=== PATIENT | female | born 1955 | race African-American/Black ===

== ENCOUNTER → 2017-05-07 | Day surgery (SDC) | payer MEDICARE ==
[~2017-05-07] MED LIST: *RESP: ALBUTEROL 2.5 MG/3 ML NEB (PRN) PERIprocedural Use ONLY NEB ONE; ACETAMINOPHEN/HYDROcodone 325 MG/5 MG TAB PO PRN; AMLO5TAB2 PO; BUPIVACAINE HCL PF 0.5% 30 ML VIAL ONE; CANA1TAB4 PO; CEPH-460 PO; CHLORHEXIDINE GLUCONATE 2 % 1 PACK (2 CLOTHS) TOPICAL PRN; INSU1INJ14 SQ; INSULIN HUMAN REGULAR 1,000 UNITS/10 ML VIAL SQ PRN; LACTATED RINGER'S 1000 ML IV PRN; LIDOCAINE HCL 1% PF 5 ML AMPULE OTHER ONE; LIDOCAINE HCL 2% 50 ML VIAL ONE; LISI-515 PO; MEPERIDINE HCL 50 MG/ML VIAL IM PRN; METOPROLOL TARTRATE 25 MG TAB PO PRN; MIDAZOLAM HCL 2 MG/2 ML VIAL IV ONE; NEOMYCIN/POLYMYXIN 1 ML G.U. IRRIGANT IRRIGATION ONE; NORC5TAB PO; PHENYLEPH/NS 1000 MCG/10 ML SYR IV ONE; POVIDONE IODINE 5% (ANTISEPSIS KIT) 4 APPLICATIONS EACH NARE PRN; PROPOFOL 200 MG/20 ML AMP IV ONE; RESP: ALBUTEROL 2.5 MG/3 ML NEB (PRN) ONE; ROCURONIUM INJ 50 MG/5 ML SYRINGE IV PUSH ONE; SODIUM CHLORID 0.9% 500 ML IV PRN; VICT18IN SQ; ePHEDrine/NS 25 MG/5 ML SYR IV ONE
[2017-05-07 07:23] LABS: AUTOMATED NEUTROPHIL # 6.5 TH/MM3 (1.8-7.7); BASOPHIL # 0.1 TH/MM3 (0-0.2); BASOPHIL % 0.8 % (0.0-2.0); EOSINOPHIL # 0.8 TH/MM3 (0-0.4); EOSINOPHIL % 5.6 % (0.0-4.0); HEMATOCRIT 43.8 % (35.0-46.0); LYMPH % 40.4 % (9.0-44.0); LYMPHOCYTE # 5.6 TH/MM3 (1.0-4.8); MEAN CELL VOLUME 69.1 FL (80.0-100.0); MEAN CORPUSCULAR HEMOGLOBIN 22.6 PG (27.0-34.0); MEAN CORPUSCULAR HGB CONC 32.7 % (32.0-36.0); MONO % 5.7 % (0.0-8.0); NEUT % 47.5 % (16.0-70.0); PLATELET COUNT 312 TH/MM3 (150-450); RED BLOOD COUNT 6.35 MIL/MM3 (4.00-5.30); RED CELL DISTRIBUTION WIDTH 15.5 % (11.6-17.2); WHITE BLOOD COUNT 13.8 TH/MM3 (4.0-11.0)
[2017-05-07 07:35] LABS: HEMO FLAGS AUTO DIFF
[2017-05-07] MEDS: ceFAZolin 1,000 MG/NS 100 ML IV SCH ×4 (08:21→08:27)
[2017-05-07 08:28] LABS: ATYPICAL LYMPHOCYTES 10 % (0-0); BASOPHILS 1 % (0-2); EOSINOPHILS 7 % (0-4); NEUTROPHIL # MANUAL DIFF 6.1 TH/MM3 (1.8-7.7); POLYS (SEG NEUTROPHILS) 44 % (16-70); WBC DIFF SAMPLE 100
[2017-05-07 08:29] LABS: PLATELET ESTIMATE SMEAR NORMAL (NORMAL); PLATELET MORPHOLOGY NORMAL (NORMAL); TARGET CELLS 1+ (NORMAL)
[2017-05-07 08:30] LABS: SCAN/DIFF FINAL DIFF MANUAL
[2017-05-07 11:45] VITALS: BP 144/84; PULSE 93; RESP 16; TEMP 97.9; O2SAT 97
--- NOTE | 2017-05-07 12:39 | MP ---
cc: RAMÓN KAY III, M.D. DATE OF SURGERY 05/07/2017 PREOPERATIVE DIAGNOSIS 1. Left carpal tunnel syndrome 2. Left index finger trigger finger. 3. Left middle finger trigger finger. 4. Left ring finger trigger finger. POSTOPERATIVE DIAGNOSIS 1. Left carpal tunnel syndrome 2. Left index finger trigger finger. 3. Left middle finger trigger finger. 4. Left ring finger trigger finger. PROCEDURE 1. Left open carpal tunnel release. 2. Left index finger A1 kristyn release. 3. Left middle finger in all A1 kristyn release. 4. Left ring finger to close the kristyn release. SURGEON Ramón Kay III, MD TOURNIQUET TIME 28 minutes at 200 mmHg. PROCEDURE The patient brought to the operating room, placed on the operating table. After the correct site and side of surgery were verified by members of each team in the room multiple times including the patient and myself and after adequate preoperative markings and preoperative written consent were verified by everyone and after adequate preop time-out was performed to everyone's satisfaction and after adequate IV sedation had been achieved, the left upper extremity was prepped and draped in the traditional sterile surgical fashion. A 50/50 mixture of 2% plain lidocaine 0.5% plain Marcaine was infiltrated in the skin and subcutaneous tissue in the area of the carpal tunnel, as well as overlying the A1 kristyn to the index, middle and ring fingers. The limb was exsanguinated with a gentle Socrates wrap and a highly placed well-padded axillary tourniquet was inflated to 200 mmHg for total of 28minutes. A longitudinally oriented incision at the base of the palm was made and carried down through skin and subcutaneous tissue. Blunt dissection was performed. Bipolar electrocautery was used as needed. The palmar fascia was retracted in opposite directions. The transverse carpal ligament was identified and divided in its midline in its entirety from its proximal most to its distal-most extents completely freeing the carpal tunnel contents and all its contents. The nerve was examined and found to be slightly hypovascular, but otherwise intact with moderately hypertrophic tenosynovium. There were no other anatomic abnormalities identified. No mass effects. Thorough irrigation with saline was performed. The skin edges were then reapproximated using running 4-0 nylon suture. A new incision was then made overlying the index finger A1 kristyn in the flexion crease. Blunt dissection was performed. The A1 kristyn was identified and divided in its entirety from its proximal most to its distal most extent. Exploration proximally did not reveal any other crossing bands of tissue and the flexor tendons were intact and non-compromised. Thorough irrigation was performed with saline irrigation. The skin edges were approximated using interrupted and running 4-0 nylon sutures. The identical procedure was then performed through a separate incision for the middle finger A1 kristyn. The identical procedure was then performed through a separate incision for the ring finger A1 kristyn. The hand and arm were thoroughly cleansed and dried. Betadine Adaptic dressings applied atop of the wounds followed by a bulky soft dressing. The axillary tourniquet was released and the hand and all fingers became immediately soft, pink, and warm and had brisk capillary refill of less than two seconds. A bulky dressing was applied. The patient was awakened from anesthesia, transported to the Post Anesthesia Care Unit in stable condition at the end of the case. The sponge, needle, and instrument counts were correct at the end of the case as reported by nurses in the room. MD KALEB Wilson III/CELINE /9:44 AM /12:23 PM
== END | disposition home or self-care (01) ==
LOC: HSDC 06:28
PROVIDERS: ATTEND Orthopaedic Surgery Hand Surgery
DX: G56.02 Carpal tunnel syndrome, left upper limb (principal); M65.322 Trigger finger, left index finger; M65.332 Trigger finger, left middle finger; M65.342 Trigger finger, left ring finger; D72.820 Lymphocytosis (symptomatic); I10 Essential (primary) hypertension; E11.9 Type 2 diabetes mellitus without complications; F17.210 Nicotine dependence, cigarettes, uncomplicated; Z79.4 Long term (current) use of insulin; Z79.899 Other long term (current) drug therapy
CPT/HCPCS: 82948; 85007; 85027; 94640; 94664; J0690; J2250; J2370; J3010; J7120; J7613

== ENCOUNTER 2017-05-15 13:24 | Emergency (ER) | payer MEDICARE, MEDICAID ==
[~2017-05-15] VITALS: Ht 157.5 cm; Wt 93.0 kg
[~2017-05-15 13:24] MED LIST changes: -*RESP: ALBUTEROL 2.5 MG/3 ML NEB (PRN) PERIprocedural Use ONLY NEB ONE; -ACETAMINOPHEN/HYDROcodone 325 MG/5 MG TAB PO PRN; -BUPIVACAINE HCL PF 0.5% 30 ML VIAL ONE; -CHLORHEXIDINE GLUCONATE 2 % 1 PACK (2 CLOTHS) TOPICAL PRN; -INSULIN HUMAN REGULAR 1,000 UNITS/10 ML VIAL SQ PRN; -LACTATED RINGER'S 1000 ML IV PRN; -LIDOCAINE HCL 1% PF 5 ML AMPULE OTHER ONE; -LIDOCAINE HCL 2% 50 ML VIAL ONE; -MEPERIDINE HCL 50 MG/ML VIAL IM PRN; -METOPROLOL TARTRATE 25 MG TAB PO PRN; -MIDAZOLAM HCL 2 MG/2 ML VIAL IV ONE; -NEOMYCIN/POLYMYXIN 1 ML G.U. IRRIGANT IRRIGATION ONE; -PHENYLEPH/NS 1000 MCG/10 ML SYR IV ONE; -POVIDONE IODINE 5% (ANTISEPSIS KIT) 4 APPLICATIONS EACH NARE PRN; -PROPOFOL 200 MG/20 ML AMP IV ONE; -RESP: ALBUTEROL 2.5 MG/3 ML NEB (PRN) ONE; -ROCURONIUM INJ 50 MG/5 ML SYRINGE IV PUSH ONE; -SODIUM CHLORID 0.9% 500 ML IV PRN; -ePHEDrine/NS 25 MG/5 ML SYR IV ONE
[2017-05-15 13:41] VITALS: BP 145/78; PULSE 78; RESP 21; TEMP 99.6; O2SAT 100
[2017-05-15] MEDS ORDERED: SODIUM CHLORIDE 0.9% FLUSH 10 ML FLUSH IVF PRN (14:00)
[2017-05-15] MEDS ORDERED: SODIUM CHLORID 0.9% 500 ML INJ 500 ML IV ONE (14:00)
[2017-05-15 15:07] LABS: AUTOMATED NEUTROPHIL # 5.7 TH/MM3 (1.8-7.7); BASOPHIL # 0.1 TH/MM3 (0-0.2); BASOPHIL % 0.6 % (0.0-2.0); EOSINOPHIL # 0.8 TH/MM3 (0-0.4); EOSINOPHIL % 6.4 % (0.0-4.0); HEMATOCRIT 42.4 % (35.0-46.0); HEMO FLAGS DIFF FINAL; LYMPH % 39.1 % (9.0-44.0); LYMPHOCYTE # 4.7 TH/MM3 (1.0-4.8); MEAN CELL VOLUME 69.3 FL (80.0-100.0); MEAN CORPUSCULAR HEMOGLOBIN 22.5 PG (27.0-34.0); MEAN CORPUSCULAR HGB CONC 32.5 % (32.0-36.0); MONO % 6.2 % (0.0-8.0); NEUT % 47.7 % (16.0-70.0); PLATELET COUNT 293 TH/MM3 (150-450); RED BLOOD COUNT 6.11 MIL/MM3 (4.00-5.30); RED CELL DISTRIBUTION WIDTH 15.4 % (11.6-17.2)
--- NOTE | 2017-05-15 15:14 | RADRPT ---
EXAM DATE/TIME: 05/15/2017 14:22 [facility] COMPARISON: CHEST SINGLE AP, August 06, 2016, 11:17. INDICATIONS : Shortness of breath. MEDICAL HISTORY : Chronic obstructive pulmonary disease. SURGICAL HISTORY : None. ENCOUNTER: Initial ACUITY: 1 day PAIN SCORE: 0/10 LOCATION: Bilateral chest FINDINGS: A single view of the chest demonstrates the lungs to be symmetrically aerated without evidence of mas s, infiltrate or effusion. The cardiomediastinal contours are unremarkable. Osseous structures are intact. CONCLUSION: No acute disease. David Jean MD on May 15, 2017 at 15:12 Board Certified Radiologist. This report was verified electronically.
[2017-05-15 15:18] LABS: APTT (PATIENT) 23.8 SEC (24.3-30.1); PROTHROMBIN TIME - PATIENT 10.9 SEC (9.8-11.6)
[2017-05-15 15:29] LABS: ALT (GPT) 47 U/L (10-53); ANION GAP 10 MEQ/L (5-15); AST (GOT) 35 U/L (15-37); BICARBONATE 23.2 MEQ/L (21.0-32.0); BLOOD UREA NITROGEN 13 MG/DL (7-18); CHLORIDE 109 MEQ/L (98-107); GLOMERULAR FILTRATION RATE 86 ML/MIN (>89); SODIUM (NA) 142 MEQ/L (136-145)
[2017-05-15 15:32] LABS: ALKALINE PHOSPHATASE 77 U/L (45-117); TOTAL BILIRUBIN ADULT 0.7 MG/DL (0.2-1.0)
[2017-05-15 15:41] LABS: CREATINE KINASE 82 U/L (26-192)
[2017-05-15 16:24] VITALS: BP 160/79; PULSE 79; RESP 18; O2SAT 99
[2017-05-15 16:49] LABS: BLOOD, URINE NEG (NEG); COMMENT (UR) CULT NOT INDICATED; CULTURE IF INDICATED CULT NOT INDICATED; GLUCOSE,URINE 1000 mg/dL (NEG); KETONE, URINE NEG (NEG); NITRITE,URINE NEG (NEG); SQUAMOUS EPITHELIAL CELL URINE 2 /hpf (0-5); URINE COLOR YELLOW (YELLW/STRAW)
--- NOTE | 2017-05-15 17:07 | PD ---
HPI Chief Complaint: Dizziness Time Seen by Provider: 13:43 Travel History International Travel<30 days: No Contact w/Intl Traveler<30days: No Traveled to known affect area: No History of Present Illness HPI Patient is a 61-year-old female brought in by EMS after nausea and feeling ill while standing in the heat. She reports [place] when she started to feel sick to her stomach, she says she got very sweaty and dizzy. She denies ever having any chest pain or shortness of breath. She was given fluids and Zofran by EMS prior to arrival, and says she is starting to feel better. She does report drinking water today. She says this never happened to her before. She denies any headache at this time. PFSH Past Medical History Arthritis: Yes Blood Disorders: No Cancer: Yes (SKIN CA REMOVED FROM FOREHEAD) Cardiovascular Problems: No Diabetes: Yes Patient Takes Glucophage: No Diminished Hearing: No Endocrine: Yes GERD: Yes Glaucoma: No Genitourinary: No Hepatitis: No Hiatal Hernia: No Hypertension: Yes (CONTROLLED WITH DIET AND EXERCISE) Immune Disorder: No Implanted Vascular Access Dvce: Yes Musculoskeletal: Yes (OA) Neurologic: No Psychiatric: No Reproductive: No Respiratory: Yes (COPD) Immunizations Current: Yes Thyroid Disease: No Ulcer: Yes Influenza Vaccination: Yes ?: Not Menopausal: Yes Tubal Ligation: Yes Past Surgical History Abdominal Surgery: Yes (LAP BAND - REMOVED 08/26/09) AICD: No Body Medical Devices: LAP BAND Cardiac Surgery: No Ear Surgery: No Endocrine Surgery: No Eye Surgery: No Genitourinary Surgery: No Gynecologic Surgery: Yes (TUBAL LIGATION, HYSTERECTOMY) Hysterectomy: Yes Joint Replacement: No Neurologic Surgery: No Oral Surgery: No Pacemaker: No Thoracic Surgery: No Other Surgery: Yes (HEMORRHOIDECTOMY) Social History Alcohol Use: No Tobacco Use: Yes (1 PPD ) Substance Use: No Allergies-Medications (Allergen,Severity, Reaction): Coded Allergies: oxycodone (Verified Allergy, Severe, RASH, ITCHING, 05/15/17) Reported Meds & Prescriptions Reported Meds & Active Scripts Active Reported Invokamet (Canagliflozin-Metformin) 150-1,000 Mg Tab 1 Tab PO BID Take with meals. Avoid ethanol. Victoza Inj (Liraglutide Inj) 18 Mg/3 Ml Pen 12 Mg SQ DAILY Lisinopril 20 Mg Tab 20 Mg PO DAILY Amlodipine (Amlodipine Besylate) 5 Mg Tab 5 Mg PO DAILY Tresiba Flextouch Pen Inj (Insulin Degludec Inj) 300 unit/3 ML Pen 60 Units SQ DAILY Review of Systems Except as stated in HPI: all other systems reviewed are Neg General / Constitutional: No: Fever, Chills Eyes: No: Blurred Vision HENT: No: Headaches, Lightheadedness Cardiovascular: No: Chest Pain or Discomfort, Palpitations Respiratory: No: Shortness of Breath Gastrointestinal: Positive: Nausea, No: Vomiting, Abdominal Pain Genitourinary: No: Dysuria Musculoskeletal: No: Myalgias, Pain Skin: No Rash, No Change in Pigmentation Neurologic: No: Weakness, Dizziness Physical Exam Narrative GENERAL: Awake and alert, in no acute distress. SKIN: Focused skin assessment warm/dry. HEAD: Atraumatic. Normocephalic. EYES: Pupils equal and round. No scleral icterus. ENT: No nasal bleeding or discharge. Mucous membranes pink and moist. NECK: Trachea midline. No JVD. CARDIOVASCULAR: Regular rate and rhythm. No murmur appreciated. RESPIRATORY: No accessory muscle use. Clear to auscultation. Breath sounds equal bilaterally. GASTROINTESTINAL: Abdomen soft, non-tender, nondistended. MUSCULOSKELETAL: No obvious deformities. No clubbing. No cyanosis. No edema. NEUROLOGICAL: Awake and alert. No obvious cranial nerve deficits. Motor grossly within normal limits. Normal speech. PSYCHIATRIC: Appropriate mood and affect; insight and judgment normal. Data Data Last Documented VS Vital Signs Date Time Temp Pulse Resp B/P (MAP) Pulse Ox O2 Delivery O2 Flow Rate FiO2 05/15/17 16:24 79 18 160/79 (106) 99 05/15/17 13:47 Room Air 05/15/17 13:41 99.6 Orders Orders Electrocardiogram (05/15/17 13:47) Complete Blood Count With Diff (05/15/17 13:47) Comprehensive Metabolic Panel (05/15/17 13:47) Ckmb (Isoenzyme) Profile (05/15/17 13:47) Troponin I (05/15/17 13:47) Act Partial Throm Time (Ptt) (05/15/17 13:47) Prothrombin Time / Inr (Pt) (05/15/17 13:47) Urinalysis - C+S If Indicated (05/15/17 13:47) Chest, Single Ap (05/15/17 13:47) Ecg Monitoring (05/15/17 13:47) Iv Access Insert/Monitor (05/15/17 13:47) Oximetry (05/15/17 13:47) Sodium Chloride 0.9% Flush (Ns Flush) (05/15/17 14:00) Sodium Chlorid 0.9% 500 Ml Inj (Ns 500 M (05/15/17 14:00) Labs Laboratory Tests Test 05/15/17 14:45 05/15/17 16:05 White Blood Count 12.0 TH/MM3 Red Blood Count 6.11 MIL/MM3 Hemoglobin 13.7 GM/DL Hematocrit 42.4 % Mean Corpuscular Volume 69.3 FL Mean Corpuscular Hemoglobin 22.5 PG Mean Corpuscular Hemoglobin Concent 32.5 % Red Cell Distribution Width 15.4 % Platelet Count 293 TH/MM3 Mean Platelet Volume 7.2 FL Neutrophils (%) (Auto) 47.7 % Lymphocytes (%) (Auto) 39.1 % Monocytes (%) (Auto) 6.2 % Eosinophils (%) (Auto) 6.4 % Basophils (%) (Auto) 0.6 % Neutrophils # (Auto) 5.7 TH/MM3 Lymphocytes # (Auto) 4.7 TH/MM3 Monocytes # (Auto) 0.7 TH/MM3 Eosinophils # (Auto) 0.8 TH/MM3 Basophils # (Auto) 0.1 TH/MM3 CBC Comment DIFF FINAL Differential Comment Prothrombin Time 10.9 SEC Prothromb Time International Ratio 1.0 RATIO Activated Partial Thromboplast Time 23.8 SEC Blood Urea Nitrogen 13 MG/DL Creatinine 0.82 MG/DL Random Glucose 78 MG/DL Total Protein 7.4 GM/DL Albumin 3.7 GM/DL Calcium Level 9.0 MG/DL Alkaline Phosphatase 77 U/L Aspartate Amino Transf (AST/SGOT) 35 U/L Alanine Aminotransferase (ALT/SGPT) 47 U/L Total Bilirubin 0.7 MG/DL Sodium Level 142 MEQ/L Potassium Level 4.0 MEQ/L Chloride Level 109 MEQ/L Carbon Dioxide Level 23.2 MEQ/L Anion Gap 10 MEQ/L Estimat Glomerular Filtration Rate 86 ML/MIN Total Creatine Kinase 82 U/L Troponin I LESS THAN 0.02 NG/ML Urine Color YELLOW Urine Turbidity CLEAR Urine pH 5.0 Urine Specific Manson 1.021 Urine Protein NEG mg/dL Urine Glucose (UA) 1000 mg/dL Urine Ketones NEG mg/dL Urine Occult Blood NEG Urine Nitrite NEG Urine Bilirubin NEG Urine Urobilinogen LESS THAN 2.0 MG/DL Urine Leukocyte Esterase NEG Urine WBC LESS THAN 1 /hpf Urine Squamous Epithelial Cells 2 /hpf Microscopic Urinalysis Comment CULT NOT INDICATED MDM Medical Decision Making Medical Screen Exam Complete: Yes Emergency Medical Condition: Yes Medical Record Reviewed: Yes Interpretation(s) ECG shows NSR at 79, no ST elevation or depression, normal intervals Differential Diagnosis Dehydration versus heat exhaustion versus electrolyte abnormality Narrative Course Patient is a 61-year-old female who comes in after feeling nauseous and sick to her stomach while out in the sun. Exam shows no acute abnormalities, abdomen is soft and nontender. IV was established, labs sent. Labs show slight elevation in white blood cell count, no other acute abnormalities. Patient given IV fluids. She did receive Zofran by EMS. She reports feeling much better after resting here in the air conditioning. Patient advised to drink plenty of fluids. Advised follow-up with her doctor. Advised to return to the ED as needed for any worsening symptoms. Diagnosis Primary Impression: Heat exhaustion Qualified Codes: T67.5XXA - Heat exhaustion, unspecified, initial encounter Patient Instructions: General Instructions, Heat Exhaustion (ED) Additional Instructions: Drink plenty of fluids. Follow-up with your doctor. Return to the ED as needed for any worsening symptoms. Disposition: 01 DISCHARGE HOME Condition: Stable Geno Nagy MD May 15, 2017 17:07
[2017-05-15 17:21] VITALS: BP 162/85
--- NOTE | 2017-05-16 05:14 | EKG ---
Date Performed: 05/15/2017 Time Performed: 13:55:21 PTAGE: 61 years EKG: Sinus rhythm NONSPECIFIC T-WAVE ABNORMALITY BORDERLINE ECG PREVIOUS TRACING : 08/06/2016 11.33 DOCTOR: Rayshawn Mendes Interpretating Date/Time 05/16/2017 05:07:55
== END 2017-05-15 18:11 | disposition home or self-care (01) ==
LOC: NEPD 13:24
DX: T67.5XXA Heat exhaustion, unspecified, initial encounter (principal); R11.0 Nausea; R42 Dizziness and giddiness; E11.9 Type 2 diabetes mellitus without complications; I10 Essential (primary) hypertension; J44.9 Chronic obstructive pulmonary disease, unspecified; K21.9 Gastro-esophageal reflux disease without esophagitis; R94.31 Abnormal electrocardiogram [ECG] [EKG]; F17.210 Nicotine dependence, cigarettes, uncomplicated
CPT/HCPCS: 71010; 80053; 81001; 82550; 84484; 85025; 85610; 85730; 93005; 96360; 96361; 99285; J7040

== ENCOUNTER 2017-08-10 12:08 | Emergency (ER) | payer MEDICARE, MEDICAID ==
[~2017-08-10] VITALS: Ht 154.9 cm; Wt 95.0 kg
[~2017-08-10 12:08] MED LIST changes: -CEPH-460 PO; -NORC5TAB PO
[2017-08-10 12:10] VITALS: BP 161/77; PULSE 86; RESP 20; TEMP 98.9; O2SAT 98
[2017-08-10] MEDS ORDERED: VENTAER INH (12:31)
[2017-08-10 12:32] VITALS: BP 144/92; PULSE 77; RESP 21; O2SAT 99
[2017-08-10] MEDS ORDERED: SODIUM CHLOR 0.9% 1000 ML INJ 1,000 ML IV ONE (12:34)
--- NOTE | 2017-08-10 12:41 | PD ---
HPI Chief Complaint: Dizziness Time Seen by Provider: 12:26 Travel History International Travel<30 days: No Contact w/Intl Traveler<30days: No Traveled to known affect area: No History of Present Illness HPI 61-year-old female presents to emergency department complaining of frontal headache and sinus pain for approximately 1 week. Patient states that she has associated dizziness, nausea, and lightheadedness with these symptoms. States the dizziness increases with movement of the head and is positional, resolved in less than 1 minute. No vomiting. Also says she has some tendinitis left greater than right. States that she "cannot hear out of her left ear". Says that approximately one week ago she started having upper respiratory/cold like symptoms and took Mucinex and other [id number] medications to decrease his symptoms. Says she did have a mild cough but currently does not. Also says she previously had some clear rhinorrhea but is scant this point. Denies fevers or chills. Denies chest pain or shortness of breath. Denies trauma or recent head injury. States she is not had these symptoms before. Says she has a history of hypertension and diabetes and takes her medication as prescribed. She has an appointment with a primary care physician August 13 [facility] Past Medical History Arthritis: Yes Blood Disorders: No Cancer: Yes (SKIN CA REMOVED FROM FOREHEAD) Cardiovascular Problems: Yes (HTN) COPD: Yes Diabetes: Yes Patient Takes Glucophage: Yes Diminished Hearing: No Endocrine: Yes GERD: Yes Glaucoma: No Genitourinary: No Hepatitis: No Hiatal Hernia: No Hypertension: Yes (CONTROLLED WITH DIET AND EXERCISE) Immune Disorder: No Implanted Vascular Access Dvce: Yes Musculoskeletal: Yes (OA) Neurologic: No Psychiatric: No Reproductive: No Respiratory: Yes (COPD) Immunizations Current: Yes Thyroid Disease: No Ulcer: Yes Menopausal: Yes Tubal Ligation: Yes Past Surgical History Abdominal Surgery: Yes (LAP BAND - REMOVED 08/26/09) AICD: No Body Medical Devices: LAP BAND Cardiac Surgery: No Ear Surgery: No Endocrine Surgery: No Eye Surgery: No Genitourinary Surgery: No Gynecologic Surgery: Yes (TUBAL LIGATION, HYSTERECTOMY) Hysterectomy: Yes Joint Replacement: No Neurologic Surgery: No Oral Surgery: No Pacemaker: No Thoracic Surgery: No Other Surgery: Yes (HEMORRHOIDECTOMY) Social History Alcohol Use: No Tobacco Use: Yes (1 PPD ) Substance Use: No Allergies-Medications (Allergen,Severity, Reaction): Coded Allergies: oxycodone (Verified Allergy, Severe, RASH, ITCHING, 08/10/17) Reported Meds & Prescriptions Reported Meds & Active Scripts Active Augmentin (Amoxicillin-Clavulanate) 875-125 Mg Tab 1 Tab PO BID 10 Days Medrol Dosepak (Methylprednisolone) 4 Mg Dspk 4 Mg PO DIRECTED Per Pharmacist direction Reported Ventolin Hfa 18 GM Inh (Albuterol Sulfate) 90 Mcg/Act Aer 1 Puff INH Q4H PRN Invokamet (Canagliflozin-Metformin) 150-1,000 Mg Tab 1 Tab PO BID Take with meals. Avoid ethanol. Victoza Inj (Liraglutide Inj) 18 Mg/3 Ml Pen 12 Mg SQ DAILY Lisinopril 20 Mg Tab 20 Mg PO DAILY Amlodipine (Amlodipine Besylate) 5 Mg Tab 5 Mg PO DAILY Tresiba Flextouch Pen Inj (Insulin Degludec Inj) 300 unit/3 ML Pen 60 Units SQ DAILY Review of Systems Except as stated in HPI: all other systems reviewed are Neg Physical Exam Narrative GENERAL: Well-developed well-nourished in mild to moderate distress SKIN: Focused skin assessment warm/dry. HEAD: Atraumatic. Normocephalic. EYES: Pupils equal and round. No scleral icterus. No injection or drainage. ENT: No nasal bleeding or discharge. Mucous membranes pink and moist. Maxillary frontal sinuses- negative tenderness palpation. No edema or erythema NECK: Trachea midline. No JVD. No lymphadenopathy. No meningismus CARDIOVASCULAR: Regular rate and rhythm. No murmur appreciated. RESPIRATORY: No accessory muscle use. Clear to auscultation. Breath sounds equal bilaterally. MUSCULOSKELETAL: No obvious deformities. No clubbing. No cyanosis. No edema. NEUROLOGICAL: Awake and alert. No obvious cranial nerve deficits. Motor grossly within normal limits. Normal speech. PSYCHIATRIC: Appropriate mood and affect; insight and judgment normal. Data Data Last Documented VS Vital Signs Date Time Temp Pulse Resp B/P (MAP) Pulse Ox O2 Delivery O2 Flow Rate FiO2 08/10/17 15:52 08/10/17 15:21 81 17 99 Room Air 08/10/17 12:[address] Brain W/O Iv Contrast(Rout) (08/10/17 12:34) Ecg Monitoring (08/10/17 12:34) Iv Access Insert/Monitor (08/10/17 12:34) Oximetry (08/10/17 12:34) Meclizine (Antivert) (08/10/17 12:45) Ondansetron Inj (Zofran Inj) (08/10/17 12:45) Sodium Chloride 0.9% Flush (Ns Flush) (08/10/17 12:45) Sodium Chlor 0.9% 1000 Ml Inj (Ns 1000 M (08/10/17 12:34) Ct Sinuses W/O Iv Contrast (08/10/17 ) Electrocardiogram (08/10/17 ) Prednisone (Deltasone) (08/10/17 15:15) Ed Discharge Order (08/10/17 15:28) MDM Medical Decision Making Medical Screen Exam Complete: Yes Emergency Medical Condition: Yes Differential Diagnosis Acute sinusitis, SAH, labyrinthitis, BPPV, tinnitus Narrative Course 61-year-old female presents to emergency department complaining of frontal headache and sinus pain for approximately 1 week. Patient states that she has associated dizziness, nausea, and lightheadedness with these symptoms. States the dizziness increases with movement of the head and is positional, resolved in less than 1 minute. No vomiting. Also says she has some tendinitis left greater than right. States that she "cannot hear out of her left ear". Says that approximately one week ago she started having upper respiratory/cold like symptoms and took Mucinex and other [id number]-[id number] medications to decrease his symptoms. Says she did have a mild cough but currently does not. Also says she previously had some clear rhinorrhea but is scant this point. Denies fevers or chills. Denies chest pain or shortness of breath. Denies trauma or recent head injury. States she is not had these symptoms before. Says she has a history of hypertension and diabetes and takes her medication as prescribed. She has an appointment with a primary care physician August 13. Vital signs stable. Physical exam findings consistent with sinusitis, frontal and maxillary. Cranial nerves grossly intact. No obvious neuro deficits. Tympanic membranes nonbulging. Upon exam patient was brought to a reclined to a sitting position and this exacerbated her dizziness that resolved within seconds. There was a 2 hour delay in the emergency department secondary to awaiting CT results. Prednisone 50 mg administered in the emergency department. Last Impressions Head CT 08/10/17 1234 Signed Impressions: Service Date/Time: Thursday, August 10, 2017 14:39 - CONCLUSION: Significant sinusitis. Aby Patrick MD Sinuses CT 08/10/17 0000 Signed Impressions: Service Date/Time: Thursday, August 10, 2017 14:39 - CONCLUSION: Sinusitis worse within the left sphenoid sinus. Aby Patrick MD Medrol Dosepak and Augmentin for sinusitis. I suspect that her sinusitis is viral however, because of the extent of the sinusitis and history of diabetes, I prefer to cover for bacterial sinusitis. Patient should use nasal saline. Follow-up with her primary care as scheduled this week. Return to the ED for worsening or persistent symptoms. Diagnosis Primary Impression: Sinusitis Qualified Codes: J01.10 - Acute frontal sinusitis, unspecified Additional Impressions: BPPV (benign paroxysmal positional vertigo) Qualified Codes: H81.13 - Benign paroxysmal vertigo, bilateral Tinnitus Qualified Codes: H93.12 - Tinnitus, left ear Referrals: Primary Care Physician Additional Instructions: Follow up with your primary care physician as scheduled August 13. If your symptoms persist or worsen, return to the emergency department. Use nasal saline and [id number] antihistamines for your sinuses. OTC Meclizine for your dizziness. Prednisone may increase your blood sugars. Be extra cautious of your intake. Scripts Amoxicillin-Clavulanate (Augmentin) 875-125 Mg Tab 1 TAB PO BID for Infection for 10 Days, #20 TAB 0 Refills Prov: Shae Mcmillan 08/10/17 Methylprednisolone Dosepak (Medrol Dosepak) 4 Mg Dspk 4 MG PO DIRECTED, #1 DSPK 0 Refills Per Pharmacist direction Prov: Shae Mcmillan 08/10/17 Disposition: 01 DISCHARGE HOME Condition: Stable Shae Mcmillan Aug 10, 2017 12:41
[2017-08-10] MEDS ORDERED: SODIUM CHLORIDE 0.9% FLUSH 10 ML FLUSH IVF PRN (12:45)
[2017-08-10] MEDS ORDERED: ONDANSETRON HCL 4 MG/2 ML VIAL IVP ONE (12:45)
[2017-08-10] MEDS ORDERED: MECLIZINE HCL 25 MG TAB PO ONE (12:45)
[2017-08-10] MEDS ORDERED: MEDR4PAK PO (15:04)
[2017-08-10] MEDS ORDERED: AUGM875T3 PO (15:04)
[2017-08-10] MEDS ORDERED: predniSONE 50 MG TAB PO ONE (15:15)
--- NOTE | 2017-08-10 15:20 | RADRPT ---
EXAM DATE/TIME: 08/10/2017 14:39 [facility] COMPARISON: No previous studies available for comparison. INDICATIONS : Dizziness, frontal headache, sinus pressure and nausea. RADIATION DOSE: 44.17 CTDIvol (mGy) MEDICAL HISTORY : Cardiovascular disease. Hypertension. Diabetes mellitus type 2. SURGICAL HISTORY : None. ENCOUNTER: Initial ACUITY: 1 week PAIN SCALE: 3/10 LOCATION: Bilateral frontal TECHNIQUE: Multiple contiguous axial images were obtained of the head. Using automated exposure control and adj ustment of the mA and/or kV according to patient size, radiation dose was kept as low as reasonably a chievable to obtain optimal diagnostic quality images. DICOM format image data is available electro nically for review and comparison. FINDINGS: There is no evidence for intracranial hemorrhage, mass effect, mass lesions, edema, or extra-axial fl uid collections. The visualized bony structures appear intact. The ventricles are normal size for t he patient's age. There are no signs of acute infarction for technique. There is sinusitis within mu ltiple sinuses including the eithmoid air cells sphenoid sinuses bilateral maxillary sinuses worse in volving the left sphenoid sinus to a significant degree. CONCLUSION: Significant sinusitis. Aby Patrick MD on August 10, 2017 at 15:17 Board Certified Radiologist. This report was verified electronically.
[2017-08-10 15:21] VITALS: BP 145/70; PULSE 81; RESP 17; O2SAT 99
--- NOTE | 2017-08-10 15:22 | RADRPT ---
EXAM DATE/TIME: 08/10/2017 14:39 [facility] COMPARISON: No previous studies available for comparison. INDICATIONS : Frontal headache, sinus pressure, dizziness and nausea. RADIATION DOSE: 18.42 CTDIvol (mGy) MEDICAL HISTORY : Cardiovascular disease. Hypertension. Diabetes mellitus type 2. SURGICAL HISTORY : None. ENCOUNTER: Initial ACUITY: 1 day PAIN SCORE: 4/10 LOCATION: Bilateral facial TECHNIQUE: Volumetric scanning of the paranasal sinuses was performed. Using automated exposure control and adj ustment of the mA and/or kV according to patient size, radiation dose was kept as low as reasonably a chievable to obtain optimal diagnostic quality images. DICOM format image data is available electro nically for review and comparison. FINDINGS: There is extensive mucoperiosteal thickening involving the left sphenoid sinus almost completely opacified mild mucoperiosteal thickening within the right sphenoid sinus. There is moderate mucoperi osteal thickening within the eithmoid air cells and bilateral maxillary sinuses. There is swelling in volving the sphenoid ethmoidal recess worse on the left and to a slight degree left infundibulum. Th e nasofrontal duct and right infundibulum are clear. The nasal septum is in midline. CONCLUSION: Sinusitis worse within the left sphenoid sinus. Aby Patrick MD on August 10, 2017 at 15:18 Board Certified Radiologist. This report was verified electronically.
--- NOTE | 2017-08-11 17:47 | EKG ---
Date Performed: 08/10/2017 Time Performed: 12:36:19 PTAGE: 61 years EKG: Sinus rhythm NONSPECIFIC T-WAVE ABNORMALITY BORDERLINE ECG PREVIOUS TRACING : 05/15/2017 13.55 Compared to prior tracing no significant change DOCTOR: Chacorta Womack Interpretating Date/Time 08/11/2017 17:46:10
== END 2017-08-10 15:53 | disposition home or self-care (01) ==
LOC: NEPE 12:08
DX: R51 Headache (principal); J01.10 Acute frontal sinusitis, unspecified; H93.13 Tinnitus, bilateral; E11.9 Type 2 diabetes mellitus without complications; H81.10 Benign paroxysmal vertigo, unspecified ear; I10 Essential (primary) hypertension; J44.9 Chronic obstructive pulmonary disease, unspecified; I25.10 Atherosclerotic heart disease of native coronary artery without angina pectoris; Z88.5 Allergy status to narcotic agent
CPT/HCPCS: 70450; 70486; 93005; 96361; 96374; 99285; J2405; J7030; J7512